=== PATIENT | female | born 1945 | race Hispanic/Latino ===

== ENCOUNTER 2019-08-31 22:26 | Emergency (ER) | payer MEDICARE ==
[~2019-08-31] VITALS: Ht 162.6 cm; Wt 99.8 kg
--- NOTE | 2019-08-31 22:35 | Emergency Department Note ---
History of Present Illnes History of Present Illness History of Present Illness This is a 74 year old female . Historian: Patient, Family Member Arrival Mode: Car Outboard Motorboat Rigger Required: Yes Onset (how long ago): day(s) (6 days ago tripped at home fell injuring her right knee no LOC has been ambulating on knee no other injuries) Severity: mild Onset quality: sudden Timing of current episode: constant Progression: unchanged Chronicity: new Context: Denies recent illness, Denies recent surgery, Denies recent immobilization, Denies recent travel, Denies trauma/injury, Denies new medications, Denies hx of DVT/PE, Denies non-compliance w/ medications, Denies other Relieving factors: immobilization Exacerbating factors: movement Associated symptoms: Denies denies other symptoms, Denies confusion, Denies [address] st pain, Denies cough, Denies diaphoresis, Denies fever/chills, Denies headaches, Denies loss of appetite, Denies malaise, Denies nausea/vomiting, Denies rash, Denies seizure, Denies shortness of breath, Denies syncope, Denies weakness, Denies other Risk factors: Pt has stopped taking some of her home medications Past Medical/Family History Physician Review I have reviewed the patient's past medical and family history. Any updates have been documented here. Past Medical History Recent Fever: No Clinical Suspicion of Infectio: No New/Unexplained Change in Ment: No Past Medical History: Hypertension, Hypothyroidism Past Surgical History: Appendectomy, T&A, Social History Smoking Cessation: Never Smoker Alcohol Use: None Any Illegal Drug Use: Yes Review of Systems Review of Systems Constitutional: Denies fever Musculoskeletal: Reports joint pain (right knee) Neurological: Denies numbness, Denies paresthesia, Denies weakness Review of other systems: All other systems negative Physical Exam Related Data Vital signs reviewed: Yes Physical Exam CONSTITUTIONAL Constitutional: Present well-developed, Present obese HENT HENT: Present normocephalic EYES Eyes: Reports conjunctivae normal NECK Neck: Present supple PULMONARY Pulmonary: Present breath sounds normal CARDIOVASCULAR Cardiovascular: Present regular rhythm GASTROINTESTINAL Abdominal: Present soft GENITOURINARY SKIN Skin: Present warm MUSCULOSKELETAL Musculoskeletal: Present other (pain in the lateral aspect of knee no swelling no erythema) NEUROLOGICAL Neurological: Present alert, Present oriented x 3, Present no gross motor or sensory deficits PSYCHOLOGICAL Psychological: Present mood/affect normal Results Imaging Imaging results reviewed: Yes Impressions Procedure: [id number] HOPD/KNEE 3VW RT - HOPD Exam Date: 08/31/19 Exam Time: 2250 REPORT STATUS: Signed X-ray right knee 3 views - 3 views HISTORY: Pain. COMPARISON: None available. FINDINGS: Bones: No acute displaced fracture. Osseous alignment is within normal limits. Joints: The joint spaces are well-maintained. Tricompartmental degenerative changes. Soft tissues: The soft tissues appear unremarkable. IMPRESSION: No acute radiographic abnormality. Tricompartment degenerative changes. Signed by: Reggie Lang DO on 08/31/2019 11:09 PM Dictated By: REGGIE LANG DO 08 Transcribed By: LAURO on 08/31/192308 COPY TO: LORENZA CASTRO MD~ Assessment & Plan Medical Decision Making MDM sprain, fracture, contusion, referred hip pain Assessment & Plan Final Impression: (1) Contusion of right knee (2) Knee pain, right Depart Disposition: HOME, SELF-FCI Meds Active Scripts Naproxen (NAPROSYN) 500 Mg Tablet, 500 MG PO BID for 7 Days, #14 TAB Prov:LORENZA CASTRO MD 08/31/19 LORENZA CASTRO MD Aug 31, 2019 22:35
[2019-08-31] MEDS ORDERED: NAPROSYN500 MG PO (23:11)
--- NOTE | 2019-08-31 23:13 | Diagnostic Imaging Report ---
X-ray right knee 3 views - 3 views HISTORY: Pain. COMPARISON: None available. FINDINGS: Bones: No acute displaced fracture. Osseous alignment is within normal limits. Joints: The joint spaces are well-maintained. Tricompartmental degenerative changes. Soft tissues: The soft tissues appear unremarkable. IMPRESSION: No acute radiographic abnormality. Tricompartment degenerative changes. Signed by: Reggie Lang DO on 08/31/2019 11:09 PM
[2019-08-31 23:29] VITALS: BP 154/60
== END 2019-08-31 23:29 | disposition home or self-care (01) ==
LOC: FSED 22:26
DX: S80.01XA Contusion of right knee, initial encounter (principal); M25.561 Pain in right knee; W01.0XXA Fall on same level from slipping, tripping and stumbling without subsequent striking against object, initial encounter; Y92.008 Other place in unspecified non-institutional (private) residence as the place of occurrence of the external cause; I10 Essential (primary) hypertension; E03.9 Hypothyroidism, unspecified
CPT/HCPCS: 99283

== ENCOUNTER → 2021-04-07 | Outpatient (CLI) | payer MEDICARE ==
[~2021-04-07] MED LIST: NAPROSYN500 MG PO
== END ==
LOC: MRI 08:51
PROVIDERS: ATTEND Family Medicine
DX: M25.561 Pain in right knee (principal)